=== PATIENT | female | born 1990 | race Caucasian/White ===

== ENCOUNTER 2020-04-24 16:20 | Emergency (ER) | payer OTHER ==
[~2020-04-24] VITALS: Ht 175.3 cm; Wt 72.6 kg
[~2020-04-24 16:20] MED LIST: HYDMOR2 PO; LINE600 PO
[2020-04-24] MEDS ORDERED: HYDRA25 (17:29)
[2020-04-24] MEDS ORDERED: TRAZ150T57 PO ×2 (17:30→17:39)
[2020-04-24] MEDS ORDERED: PRAZ1 PO ×2 (17:30→17:39)
[2020-04-24] MEDS ORDERED: BUSP10 PO ×2 (17:31→17:39)
[2020-04-24] MEDS ORDERED: QUET300 PO ×2 (17:31→17:39)
[2020-04-24] MEDS ORDERED: SERT100 PO (17:31)
[2020-04-24] MEDS ORDERED: HYDHCL25 PO (17:39)
[2020-04-24] MEDS ORDERED: Zoloft100 MG PO (17:39)
== END 2020-04-24 17:43 | disposition home or self-care (01) ==
LOC: ER 16:20
DX: Z76.0 Encounter for issue of repeat prescription (principal); F32.9 Major depressive disorder, single episode, unspecified; F41.9 Anxiety disorder, unspecified; F17.210 Nicotine dependence, cigarettes, uncomplicated; Z79.899 Other long term (current) drug therapy
CPT/HCPCS: 99281